=== PATIENT | male | born 1955 | race Caucasian/White ===

== ENCOUNTER → 2025-01-11 09:24 | Outpatient (BNVA) | payer MEDICARE, SELFPAY | PROVIDERS: PCP Family Medicine; Visit Provider Family Medicine | DX: Z13.6 Encounter for screening for cardiovascular disorders (principal); R73.09 Other abnormal glucose; N40.0 Benign prostatic hyperplasia without lower urinary tract symptoms | CPT/HCPCS: 80053; 80061; 83036; 84153; 84439; 84443; 85025 ==

== ENCOUNTER 2025-01-26 06:07 | Outpatient (CLI) | payer MEDICARE, SELFPAY ==
--- NOTE | 2025-01-26 06:15 | USCV_ITS ---
Kyle Hua Age: 69 Gender: M : 1955 Exam Date: 01/26/2025 06:40 Ordering Phys: Dallas Caban MD Technologist: Gerardo Medrano Exam Location: [facility] Indication: htn, old mi BP: 136 / 86 HR: 76 Rhythm: Sinus Technical Quality: Adequate MEASUREMENTS (Male / Female) Normal Values 2D ECHO LV Diastolic Diameter PLAX 5.0 cm 4.2 - 5.9 / 3.9 - 5.3 cm IVS Diastolic Thickness 0.9 cm 0.6 - 1.0 / 0.6 - 0.9 cm IVS Systolic Thickness 1.2 cm LVPW Diastolic Thickness 0.9 cm 0.6 - 1.0 / 0.6 - 0.9 cm LVPW Systolic Thickness 1.4 cm LVOT Diameter 2.0 cm LV Ejection Fraction 2D Teich 58.0 % LV Ejection Fraction MOD 4C 72.0 % LV Ejection Fraction MOD 2C 68.0 % LV Ejection Fraction 2C AL 66.6 % LA Diameter 3.7 cm RA Systolic Volume 4C AL 29.5 ml RA Systolic Volume 4C MOD 27.9 ml LA Sys Volume AL 48.2 cm cubed LA Sys Volume Index AL 22.9 cm cubed/m squared Aorta at Sinotubular Diameter 2.6 cm IVC Diameter 1.6 cm M-MODE LA Ao Ratio MM 1.3 AV Cusp Separation MM 2.2 cm DOPPLER AV Peak Velocity 129.7 cm/s LVOT Peak Velocity 99.0 cm/s AV Area Cont Eq vti 2.7 cm squared AV Area Cont Eq pk 2.4 cm squared MV Peak Velocity 67.0 cm/s MV Area PHT 3.6 cm squared Mitral E to A Ratio 0.9 TV Peak Velocity 154.7 cm/s TR Peak Velocity 178.0 cm/s TR Peak Gradient 12.7 mmHg TR Mean Velocity 147.0 cm/s TR Mean Gradient 9.0 mmHg TR Velocity Time Integral 36.8 cm PV Peak Velocity 145.0 cm/s RV Ejection Time 0.3 s FINDINGS Left Ventricle Normal left ventricular size, systolic function and wall thickness with no regional wall motion abnormality. Left ventricular ejection fraction is 68%. Normal left ventricular diastolic function. Right Ventricle Normal right ventricular size and systolic function. Right Atrium Normal right atrial size. Left Atrium Normal left atrial size. IA Septum Normal appearance of the interatrial septum. Mitral Valve Normal mitral valve structure. No mitral valve stenosis. Trace regurgitation. Aortic Valve Normal aortic valve structure. No aortic valve stenosis or regurgitation. Tricuspid Valve Normal tricuspid valve structure. No tricuspid valve stenosis. Trace regurgitation. Normal pulmonary pressure. Pulmonic Valve Normal pulmonic valve structure. No pulmonic valve stenosis. Mild regurgitation. Pericardium No pericardial effusion. Aorta Normal diameter of the aortic root and ascending thoracic aorta. IVC Normal IVC diameter. CONCLUSIONS Normal left ventricular size, systolic function and wall thickness with ejection fraction of 68%. Normal right ventricular size and systolic function. No significant valvular abnormalities. Homero Aguilar MD, FACC (Electronically Signed) Final Date: 26 January 2025 14:35 S
== END 2025-01-26 06:08 | disposition home or self-care (01) ==
LOC: RAD 06:11
PROVIDERS: PCP Family Medicine; Visit Provider Family Medicine
DX: I25.2 Old myocardial infarction (principal)
CPT/HCPCS: 93306